=== PATIENT | male | born 1965 | race Caucasian/White ===

== ENCOUNTER → 2017-04-06 | Outpatient (CLI) | payer BC ==
[~2017-04-06] MED LIST: RANI300T2; TRAM-10 PO
--- NOTE | 2017-04-06 10:42 | DIAGNOSTIC IMAGING REPORT ---
LEFT HAND 3 VIEWS HISTORY: Left hand pain. COMPARISON: None. FINDINGS: There is no fracture or dislocation. Mild soft tissue swelling at the second and third MCP joints. No radiopaque foreign bodies. IMPRESSION: No fractures. Electronically signed by: Sandro Rodríguez M.D. 04/06/2017 10:41 AM Dictated Date/Time: 04/06/2017 10:37 AM
== END | disposition home or self-care (01) ==
LOC: C.RDSM 10:52
PROVIDERS: ATTEND Physician Assistant
DX: M79.642 Pain in left hand (principal)